=== PATIENT | male | born 1995 | race Caucasian/White ===

== ENCOUNTER 2016-08-14 06:52 | Emergency (ER) | payer OTHER ==
[~2016-08-14] VITALS: Ht 182.9 cm; Wt 83.0 kg
[2016-08-14 06:55] VITALS: TEMP 36.7; Ht 182.9 cm; Wt 83.0 kg
[2016-08-14] MEDS ORDERED: PROPARACAINE HCL 0.5% OP SOLN 15 ML BTL OP STA (07:22)
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
--- NOTE | 2016-08-14 08:10 | DIAGNOSTIC IMAGING REPORT ---
MAXILLOFACIAL CT CT DOSE: HISTORY: Trauma left periorbital pain/swelling TECHNIQUE: Multiaxial CT images of the maxillofacial region were performed and reformatted in the coronal plane without the use of contrast. COMPARISON: None. FINDINGS: The visualized cervical spine, skull base, pterygoid plates, nasal bones, lamina papyracea, orbital floors, mandible, and zygomatic arches are intact. No fractures. The orbits are unremarkable. IMPRESSION: Moderate left preorbital soft tissue edema. No acute bony abnormality. Electronically signed by: Fawad Smith M.D. 08/14/2016 8:08 AM Dictated Date/Time: 08/14/2016 8:06 AM
[2016-08-14] MEDS ORDERED: ERYTHROMYCIN OP OINT 5 MG/GM 3.5 GM TUBE OP STA (08:27)
[2016-08-14] MEDS ORDERED: CIPROFLOXACIN HCL 0.3% OP SOLN 2.5 ML BTL OP ONE (08:30)
[2016-08-14 08:35] VITALS: BP 131/64; PULSE 72; O2SAT 94
[2016-08-14] MEDS ORDERED: HYDR-5688 PO (08:45)
== END 2016-08-14 09:06 | disposition home or self-care (01) ==
LOC: C.EDB 06:54 → C.EDA 09:06
DX: S05.02XA Injury of conjunctiva and corneal abrasion without foreign body, left eye, initial encounter (principal); S00.81XA Abrasion of other part of head, initial encounter; S00.83XA Contusion of other part of head, initial encounter; W50.0XXA Accidental hit or strike by another person, initial encounter